=== PATIENT | male | born 1965 | race Caucasian/White ===

== ENCOUNTER 2020-05-04 08:28 | Day surgery (SDC) | payer MEDICARE ==
--- NOTE | 2020-05-01 13:08 | HP ---
DATE OF SURGERY: 05/04/2020 HISTORY OF PRESENT ILLNESS: The patient is a 54 year old with no prior colonoscopy, no bloody stools, no change in bowel movements, no pain. Family history his aunt and grandfather with colon cancer. The patient is in need of screening colonoscopy. PAST MEDICAL HISTORY: Hypertension, atrial fibrillation, some right side weakness from stroke in the past. He has hyperlipidemia. PAST SURGICAL HISTORY: He denied any prior surgery. MEDICATIONS: Amlodipine, atorvastatin, Eliquis, metoprolol, Lisinopril, trazodone, vitamin D. ALLERGIES: NKDA. FAMILY HISTORY: Hypertension, diabetes. SOCIAL HISTORY: No smoking or alcohol abuse. REVIEW OF SYSTEMS: Fourteen systems reviewed. No chest pain or palpitations. Other systems negative or noncontributory as above and per preadmission questionnaire. PHYSICAL EXAMINATION: GENERAL: No acute distress. HEENT: Sclerae nonicteric. NECK: No JVD. CHEST: Equal excursion. CVS: Regular rate and rhythm. ABDOMEN: Soft. RECTAL: Deferred timed to endoscopy exam. PSYCH: Appropriate mood and affect. IMPRESSION: Family history of colon cancer. No prior colonoscopy. This patient is in need of screening colonoscopy. I feel he is a candidate. He is shown the risk sheet and explained the procedure in detail including but not limited to bleeding or infection, risk of bowel injury or perforation possibly requiring open procedure, risk of missed or nondiagnosis or incomplete exam possibly requiring barium enema, other studies or procedures, general risk of anesthesia or sedation but not limited to, consent was obtained. Will proceed with colonoscopy as an outpatient.
[~2020-05-04 08:28] MED LIST: Lactated Ringers 1,000 ML IV SCH
[2020-05-04] MEDS ORDERED: Lactated Ringers 1,000 ML IV ONE (08:43)
[2020-05-04] MEDS ORDERED: DIPRIVAN 200 MG/20 ML IV ONE ×2 (10:51)
[2020-05-04] MEDS ORDERED: Ketamine HCl 50 MG/ML ONE (10:51)
[2020-05-04 12:11] VITALS: BP 129/88; PULSE 65; O2SAT 100
--- NOTE | 2020-05-05 10:02 | OP ---
SURGERY DATE/TIME: 05/04/2020 1054 PREOPERATIVE DIAGNOSIS: Family history of colon cancer, need for screening colonoscopy. POSTOPERATIVE DIAGNOSES: 1) Polyps ascending colon, sigmoid colon. 2) Diverticulosis. 3) Small internal hemorrhoid. 4) Fair but limited prep proximal right colon. 5) ASA Class II. 6) Withdrawal time ten minutes. 7) Ileocecal valve and cecal area photo documented. PROCEDURES: 1) Colonoscopy to cecum with hot snare polypectomy, ascending colon polyp. 2) Hot biopsy polyp resection smaller ascending colon polyp. 3) Hot snare polypectomy sigmoid colon polyp. SURGEON: Dr. Percy Cowan. ANESTHESIA: MAC. ESTIMATED BLOOD LOSS: Minimal. INDICATIONS: As noted above. Risks and benefits explained in detail but not limited to and consent obtained. DESCRIPTION OF PROCEDURE AND FINDINGS: The patient is taken to the endoscopy suite. MAC anesthesia introduced. After official time out and no disagreement with planned procedure, digital rectal exam did not reveal any rectal masses. He did have some small internal hemorrhoids. Video colonoscope inserted and passed up the tortuous sigmoid, descending, transverse and ascending colon. With external pressure and positioning on his back and two different staff members compressing, the scope was able to reach the cecum and the valve area was photo documented. It should be noted that proximal right colon had semisolid liquidy stool limiting the exam this was suctioned irrigated as clear as possible but did limit the exam. He had two visible polyps one removed with hot snare polypectomy with brief bursts of cautery this was about 3 to 4 mm in size and another 2.5 to 3 mm polyp was removed with hot biopsy forceps with brief bursts of cautery in the ascending colon. Good hemostasis noted. The staff felt they had the polyps. Scope was slowly and carefully withdrawn over the next ten minutes. There were no signs of any other large polyps, masses or any other obstructing lesions. Back in the sigmoid colon where an 8 mm polyp on a stalk was removed with hot snare polypectomy with brief bursts of cautery. Good hemostasis noted. Otherwise he had some small internal hemorrhoids. He did have some diverticulosis. There were no signs of any obstructing lesions. Again, proximal right colon prep was limited, limiting the exam for very small polyps or lesions. Therefore I feel the patient needs follow up colonoscopy within the next couple years to follow the proximal right colon prep and presence of polyps. The patient tolerated the procedure well. There was no family here to discuss the findings with at this time. I will see him back in the office next week to go over the results.
== END 2020-05-04 12:20 | disposition home or self-care (01) ==
LOC: SDC 08:28
PROVIDERS: ATTEND Surgery
DX: Z12.11 Encounter for screening for malignant neoplasm of colon (principal); Z85.038 Personal history of other malignant neoplasm of large intestine; K57.30 Diverticulosis of large intestine without perforation or abscess without bleeding; D12.2 Benign neoplasm of ascending colon; D12.5 Benign neoplasm of sigmoid colon; K64.8 Other hemorrhoids; I10 Essential (primary) hypertension; Z86.73 Personal history of transient ischemic attack (TIA), and cerebral infarction without residual deficits; I48.91 Unspecified atrial fibrillation; E78.5 Hyperlipidemia, unspecified; Z79.01 Long term (current) use of anticoagulants; Z79.899 Other long term (current) drug therapy
CPT/HCPCS: J2704

== ENCOUNTER 2022-11-07 05:42 | Day surgery (SDC) | payer MEDICARE ==
[2022-11-07] MEDS ORDERED: Lactated Ringers 1,000 ML IV SCH (06:30)
[2022-11-07] MEDS ORDERED: Xylocaine-Mpf 2% 5 Ml Vial ONE (06:54)
[2022-11-07] MEDS ORDERED: DIPRIVAN 200 MG/20 ML IV ONE ×2 (06:54→07:46)
[2022-11-07 08:24] VITALS: O2SAT 98
[2022-11-07 08:38] VITALS: BP 139/83; PULSE 69
--- NOTE | 2022-11-07 14:32 | OP ---
SURGERY DATE/TIME: 11/07/2022 0736 PREOPERATIVE DIAGNOSIS: Screening exam. POSTOPERATIVE DIAGNOSIS: Normal colon. PROCEDURE: Colonoscopy. SURGEON: Dr. Cabrera. ANESTHESIA: MAC. Medications given by anesthesia department. HISTORY: The patient is a 57 -year-old white male patient presenting now for screening colonoscopy. He was appraised of the risks of the procedure including the risk of perforation, phlebitis, untoward reaction to medication, bleeding and missed lesions. The patient verbalized his understanding and desired to have the procedure performed. DESCRIPTION OF PROCEDURE: The patient was given the medications by the anesthesia department. He had continuous pulse oximetry, ECG monitoring and intermittent blood pressure monitoring during the examination. He was placed in the left lateral decubitus position. Digital rectal examination was performed and revealed normal anal sphincter tone, no masses and normal prostate. The flexible Olympus pediatric colonoscope was used to intubate the rectum. A view of the colon was developed sequentially to the cecum. Upon insertion and withdrawal, including a retroflex view in the rectum, no mucosal lesions were encountered. The scope was removed from the patient who tolerated the procedure well and was sent back to OP recovery in good condition. The prep was noted to be fair to good.
== END 2022-11-07 08:45 | disposition home or self-care (01) ==
LOC: SDC 05:42
PROVIDERS: ATTEND Family Medicine
DX: Z12.11 Encounter for screening for malignant neoplasm of colon (principal)
CPT/HCPCS: J2704